=== PATIENT | male | born 1995 | race Two or more races ===

== ENCOUNTER 2016-05-22 12:20 | Emergency (ER) | payer SELFPAY ==
[~2016-05-22] VITALS: Ht 170.2 cm; Wt 61.2 kg
[2016-05-22 13:00] VITALS: BP 159/92
[2016-05-22] MEDS ORDERED: Lidocaine 1% Plain 30 ml INJ ONE (13:00)
[2016-05-22] MEDS ORDERED: Surgicel 4in x 8in TOPIC ONE (13:45)
--- NOTE | 2016-05-22 14:07 | Emergency Room Report ---
History of Present Illness General Chief Complaint: Laceration Source: Patient Present Illness HPI 20-year-old male presents emergency department complaining of laceration to the left index and thumb times one day. Patient states that he was using a skill saw at home and sustained a laceration. Patient denies taking blood thinning medications. Patient states he is up-to-date with tetanus and received it 2 years ago. Patient states pain is bilateral tender in severity localized to the area of the laceration and is only exacerbated upon movement or touching. Denies numbness tingling or loss of sensation or gross motor movements of the extremities, incontinence of bowel or bladder. Denies CP, Palpitations, LOC, AMS , dizziness, Changes in Vision, Sensation, paresthesias, or a sudden severe headache. Allergies: Coded Allergies: No Known Allergies (Unverified , 05/22/16) Patient History Past Medical History: see triage record Past Surgical History: none Pertinent Family History: none Immunizations: UTD - tetanus 2 years ago. Reviewed Nursing Documentation: PMH: Agreed, PSxH: Agreed Nursing Documentation-PMH Past Medical History: No Stated History Review of Systems All Other Systems: negative except mentioned in HPI Physical Exam Vital Signs Date Time Temp Pulse Resp B/P Pulse Ox O2 Delivery O2 Flow Rate FiO2 05/22/16 12:25 98.2 75 20 159/92 100 Room Air Sp02 EP Interpretation: reviewed, normal General Appearance: no apparent distress, alert, GCS 15, non-toxic Head: normocephalic, atraumatic Eyes: bilateral eye PERRL, bilateral eye normal inspection ENT: hearing grossly normal, normal pharynx, no angioedema, normal voice Neck: full range of motion, supple/symm/no masses Respiratory: chest non-tender, lungs clear, normal breath sounds, speaking full sentences Cardiovascular #1: regular rate, rhythm, no edema Rectal: deferred Musculoskeletal: back normal, gait/station normal, normal range of motion, non- tender, no calf tenderness, other - PT has FROM of the PIP and DIP of the affected fingers against resistance, mild pain superficially at the site of lacerations. no bony TTP Neurologic: alert, oriented x3, responsive, motor strength/tone normal, sensory intact, speech normal Psychiatric: judgement/insight normal, memory normal, mood/affect normal, no suicidal/homicidal ideation Skin: normal color, no rash, warm/dry, well hydrated, laceration - there are two lacerations: a 3cm moderate depth laceration with avulsion and jagged edges of the dorsal-lateral side of the left index, finger, there is 1cm avulsion of the distal tip of the left thumb with jagged edges. , no evidence of tendon involvement, no fb noted. Lymphatic: no adenopathy Medical Decision Making PA Attestation Dr. Patricio is my supervising Physician whom patient management has been discussed with. Diagnostic Impression: Primary Impression: Laceration ER Course Pt. presents to the ED c/o laceration to left index and thumb Ddx considered but are not limited to laceration, tendon injury, cellulitis, amputation Vital signs: are WNL, pt. is afebrile H&PE are most consistent with: Two lacerations: a 3cm moderate depth laceration with avulsion and jagged edges of the dorsal-lateral side of the left index, finger, there is 1cm avulsion of the distal tip of the left thumb with jagged edges. , no evidence of tendon involvement, no fb noted. ORDERS: none required at this time, the diagnosis is clinical ED INTERVENTIONS: -Tetanus vaccine was administered as pt. vaccination status was unknown. - The wound was copiously irrigated with normal saline, and explored for foreign body for which no FB was found. -1%lidocaine w. epi. is superficially injected to manage bleeding of the laceration of the left index finger 1cc was used. hemostasis was achieved. Pt. tolerated well, there were no complications. - The wounds are dressed to heal with secondary intent. -Finger Splint applied to the left index finger, by RN. Pt. remains neurovascularly intact. Discussed with patient: That we make every effort to approximate the laceration as best as we can so that scarring will be as cosmetically pleasing as possible with our limited cosmetic skill set in the Emergency dept. Regardless of our best efforts there will be scarring after laceration repair. The extent of scarring is unknown at this time. -d/w pt. to follow up with hand specialist or PCP,and to take PO abx. DISCHARGE: At this time pt. is stable for d/c to home. Will provide printed patient care instructions, and any necessary prescriptions. Care plan and follow up instructions have been discussed with the patient prior to discharge. Last Vital Signs Date Time Temp Pulse Resp B/P Pulse Ox O2 Delivery O2 Flow Rate FiO2 05/22/16 12:25 98.2 75 20 159/92 100 Room Air Disposition: HOME, SELF-CARE Condition: Stable Scripts Acetaminophen* (TYLENOL EXTRA STRENGTH*) 500 Mg Tablet 500 MG ORAL Q8H, #30 TAB 0 Refills Prov: Viola King 05/22/16 Cephalexin* (KEFLEX*) 500 Mg Capsule 500 MG ORAL EVERY 12 HOURS for 7 Days, #14 CAP 0 Refills Prov: Viola King 05/22/16 Referrals: NOT CHOSEN IPA/,REFERRING (PCP) Patient Instructions: Nonsutured Laceration Care Additional Instructions: Take medications as directed. Follow up with Hand Specialist or PCP in 3-5 days The wound is currently healing by secondary intent. * keep splint on. Return sooner to ED if new symptoms occur, or current symptoms become worse. - Please note that this Emergency Department Report was dictated using [employer] custom technology software, occasionally this can lead to erroneous entry secondary to interpretation by the dictation equipment. Viola King May 22, 2016 14:07
[2016-05-22] MEDS ORDERED: CEPHALEXIN500 MG ORAL (14:12)
[2016-05-22] MEDS ORDERED: TYLENOL EXTRA500 MG ORAL (14:12)
[2016-05-22 14:30] VITALS: BP 125/75
[2016-05-22 14:40] VITALS: BP 125/75
== END 2016-05-22 14:40 | disposition home or self-care (01) ==
LOC: EMR 13:05
DX: S61.211A Laceration without foreign body of left index finger without damage to nail, initial encounter (principal); S61.012A Laceration without foreign body of left thumb without damage to nail, initial encounter; W27.0XXA Contact with workbench tool, initial encounter; Y92.009 Unspecified place in unspecified non-institutional (private) residence as the place of occurrence of the external cause
CPT/HCPCS: 12002; 99284; J2001